=== PATIENT | female | born 1960 | race Caucasian/White ===

== ENCOUNTER 2025-08-13 13:44 | Inpatient (IN) | payer OTHER ==
[~2025-08-13] VITALS: Ht 167.6 cm; Wt 63.5 kg
[~2025-08-13 13:44] MED LIST: FERR325T23 PO; PANT40TA2 PO
[2025-08-13 15:13] LABS: PLATELET COUNT (AUTO) 204 K/uL (150-450); RED BLOOD CELL COUNT(AUTO) 4.25 MIL/uL (4.0-5.2); RED CELL DISTRIBUTION WIDTH 19.2 % (11.5-15.0); WHITE BLOOD COUNT (AUTO) 3.3 K/uL (4.3-11.0)
[2025-08-13 15:21] LABS: CALCIUM, SERUM 8.3 mg/dL (8.5-10.1); CREATININE 1.3 mg/dL (0.6-1.3); SODIUM SERUM 135 mmol/L (136-145); UREA NITROGEN, BLOOD 15 mg/dL (7-18)
[2025-08-13] MEDS ORDERED: Z GUARD REMEDY 4 OZ OINT TP PRN (15:30)
[2025-08-13] MEDS ORDERED: ONDANSETRON HCL/PF 4 MG/2 ML VIAL IVP PRN (15:30)
[2025-08-13] MEDS: FUROSEMIDE 40 MG/4 ML VIAL IV ONE (15:30)
[2025-08-13] MEDS ORDERED: MAGNESIUM HYDROXIDE 30 ML UDC PO PRN (15:30)
[2025-08-13] MEDS ORDERED: MAG HYDROX/AL HYDROX/SIMETH 30 ML UDC PO PRN (15:30)
[2025-08-13 15:34] LABS: NT-PRO BNP 4925 pg/mL (0-125)
[2025-08-13] MEDS ORDERED: FUROSEMIDE 40 MG/4 ML VIAL ONE (15:34)
[2025-08-13] MEDS ORDERED: ALBUTEROL FS 2.5 MG/3 ML VIAL.NEB ONE (15:41)
[2025-08-13] MEDS ORDERED: IPRATROPIUM NEB FS 0.5 MG/2.5 ML AMPUL.NEB ONE (15:41)
[2025-08-13] MEDS: ALBUTEROL FS 2.5 MG/3 ML VIAL.NEB CONTNEB ONE (15:44)
[2025-08-13] MEDS: IPRATROPIUM NEB FS 0.5 MG/2.5 ML AMPUL.NEB NEB ONE (15:44)
[2025-08-13 15:45] VITALS: O2SAT 97
[2025-08-13] MEDS ORDERED: POTASSIUM CL. PREMIX PERIPHER. 50 ML ONE (16:11)
[2025-08-13] MEDS: POTASSIUM CL. PREMIX PERIPHER. 50 ML IV SCH (16:15)
[2025-08-13 16:49] VITALS: O2SAT 100
[2025-08-13 17:22] VITALS: BP 132/79; TEMP 97.2; O2SAT 97
[2025-08-13] MEDS: POTASSIUM CHLORIDE 20 MEQ TAB.PRT.SR PO ONE (18:05)
[2025-08-13 20:00] VITALS: BP 156/90; TEMP 97.9; O2SAT 98
[2025-08-13] MEDS: PANTOPRAZOLE 40 MG TABLET.DR PO SCH (21:23)
[2025-08-14] VITALS (10 sets, daily range): BP systolic 148–170; BP diastolic 83–94; TEMP 97.5–98.1; O2SAT 9–100
[2025-08-14 07:59] LABS: PLATELET COUNT (AUTO) 174 K/uL (150-450); RED BLOOD CELL COUNT(AUTO) 5.52 MIL/uL (4.0-5.2); RED CELL DISTRIBUTION WIDTH 19.7 % (11.5-15.0); WHITE BLOOD COUNT (AUTO) 11.8 K/uL (4.3-11.0)
[2025-08-14] MEDS: ACETAMINOPHEN 325 MG TABLET PO PRN (08:00)
[2025-08-14] MEDS: FERROUS SULFATE (325 MG) 325 MG/TAB TABLET PO SCH (08:36)
[2025-08-14 09:44] LABS: CALCIUM, SERUM 8.1 mg/dL (8.5-10.1); CREATININE 1.4 mg/dL (0.6-1.3); PHOSPHORUS 3.5 mg/dL (2.5-4.9); UREA NITROGEN, BLOOD 20.0 mg/dL (7-18)
[2025-08-14 09:51] LABS: SODIUM SERUM 139.0 mmol/L (136-145)
[2025-08-14] MEDS: POTASSIUM CHLORIDE 20 MEQ TAB.PRT.SR PO ONE (12:15)
[2025-08-14] MEDS: CLONIDINE HCL 0.1 MG TABLET PO PRN (12:34)
[2025-08-14 13:24] LABS: LYMPHOCYTES % (MANUAL) 2 % (16-48); MONOCYTES % (MANUAL) 1 % (0-11.0); NEUTROPHILS % (MANUAL) 97 (42-76); PLATELET ESTIMATE ADEQUATE
[2025-08-14] MEDS: AMLODIPINE BESYLATE 5 MG TABLET PO SCH (16:16)
[2025-08-14] MEDS: CLOTRIMAZOLE/BETAMETASONE DIPROPIONATE 15 GM TUBE TP SCH (16:27)
[2025-08-14] MEDS: ALBUTEROL FS 2.5 MG/3 ML VIAL.NEB NEB PRN (22:09)
[2025-08-15 08:13] LABS: CALCIUM, SERUM 8.9 mg/dL (8.5-10.1); CREATININE 1.0 mg/dL (0.6-1.3); SODIUM SERUM 137.0 mmol/L (136-145); UREA NITROGEN, BLOOD 19.0 mg/dL (7-18)
[2025-08-15 08:58] VITALS: BP 160/82
[2025-08-15] MEDS ORDERED: AMLO-213 PO (11:04)
[2025-08-15] MEDS ORDERED: PRED50TA PO (11:04)
[2025-08-16] MEDS ORDERED: AMLODIPINE BESYLATE 10 MG TABLET PO SCH (09:00)
== END 2025-08-15 13:59 | disposition home or self-care (01) | DRG 140 ==
LOC: ER 13:52 → TELE1 16:10
PROVIDERS: ADMIT Internal Medicine; ATTEND Internal Medicine
DX: J44.1 Chronic obstructive pulmonary disease with (acute) exacerbation (principal); J96.21 Acute and chronic respiratory failure with hypoxia; I50.33 Acute on chronic diastolic (congestive) heart failure; I13.0 Hypertensive heart and chronic kidney disease with heart failure and stage 1 through stage 4 chronic kidney disease, or unspecified chronic kidney disease; I42.9 Cardiomyopathy, unspecified; N17.9 Acute kidney failure, unspecified; E87.6 Hypokalemia; F17.210 Nicotine dependence, cigarettes, uncomplicated; Z71.6 Tobacco abuse counseling; I07.1 Rheumatic tricuspid insufficiency; L30.8 Other specified dermatitis; C44.591 Other specified malignant neoplasm of skin of breast; F19.11 Other psychoactive substance abuse, in remission; Z76.5 Malingerer [conscious simulation]; N18.9 Chronic kidney disease, unspecified
CPT/HCPCS: 36415; 71045-TC; 80048-TC; 83735-TC; 83880; 84100-TC; 84439-TC; 84443-TC; 84484-TC; 85025-TC; 85027-TC; 87081-TC; 93307-TC; 94799-TC; A4223; G0378; G0480; J1938; J2919; J3480; J7050